=== PATIENT | female | born 1985 | race Caucasian/White ===

== ENCOUNTER 2019-02-28 01:40 | Emergency (ER) | payer BC, SELFPAY ==
[2019-02-28 01:40] VITALS: BP 157/103; PULSE 70; RESP 16; TEMP 37.1; O2SAT 99; BMI 36.4
--- NOTE | 2019-02-28 01:47 | XR_ITS ---
WS: [id number] SOFT TISSUE NECK 2 VIEW(S) TECHNIQUE: AP and lateral views of the neck in soft tissue technique are performed. HISTORY: possible Fb in throat COMPARISON: None available. No significant steepling or narrowing of the airway. Hypopharynx is not distended. No retropharyngeal soft tissue mass or air. Epiglottis is normal. XR/XR soft tissue neck [id number] IMPRESSION: Normal soft tissue neck.
--- NOTE | 2019-02-28 01:47 | XR_ITS ---
WS: [id number] CHEST 2 VIEWS HISTORY: possible FB in throat COMPARISON: 03/31/2018 Lungs: Clear with no abnormality. No pleural effusion or pneumothorax. Cardiac size: Normal. Mediastinum/Aorta: Normal mediastinum. Bones: Normal. XR/XR chest 2V* [id number] IMPRESSION: Normal chest.
--- NOTE | 2019-02-28 01:48 | ED_ITS ---
HPI - General Adult General: Chief complaint: General Medical Stated complaint: something stuck in throat Time Seen by Provider: 02/28/19 01:43 History of Present Illness: HPI narrative: Patient states she was eating spaghetti night and after eating spaghetti she noticed feeling her throat like a fullness and thought that maybe she had got some stuck in her throat. She ate some bread and drink some water to try to wash it down those things went down fine but she still feels like some stuck in her throat. She said it like a pill being stuck in there but 5 times is worse and when she pushes on it she feels like she can feel something down the lower part of her throat. Onset (ago): hour(s) Radiation: non-radiation Severity: moderate Quality: dull Associated symptoms: Reports vomiting; Deny chest pain, dyspnea, headache(s) or rash Review of Systems Narrative: Feels like throat foreign body stuck in throat Const: Denies: fever, chills or body aches Eyes: Denies: change in vision or blurry vision ENMT: Denies: throat pain or nasal congestion Card: Denies: chest pain or shortness of breath on exertion Resp: Denies: shortness of breath, productive cough or non-productive cough GI: Reports: vomiting Musc: Denies: extremity pain Skin/Breast: Denies: rash Neuro: Denies: headache Psych: Denies: anxiety or depression Chuy/Lymph: Denies: easy bruising PFSH ED PFSH: Statuses (acute, chronic, etc) shown below reflect problem list status as previously entered and may not be historically accurate Social History Smoking and tobacco status: never smoked Physical Exam Const: COMMON NORMALS: oriented x3 GENERAL APPEARANCE: cooperative, comfortable and well kempt HENMT: THROAT: posterior oropharynx normal; tonsils not abnormal Eye: CONJUNCTIVA: Yes other (Right conjunctive is injected) Neck/C-Spine: COMMON NORMALS: full ROM, no lymphadenopathy, no JVD and thyroid normal THYROID: thyroid normal Cardio: COMMON NORMALS: no JVD and regular rate RATE: regular rate Neuro: COMMON NORMALS: oriented x3 Psych: COMMON NORMALS: mental status grossly normal APPEARANCE: Yes well kempt Course Vital Signs: Vital signs: Vital Signs Temperature 98.8 F 02/28/19 01:40 Pulse Rate 75 02/28/19 01:51 Respiratory Rate 18 02/28/19 01:51 Blood Pressure 157/103 02/28/19 01:51 Pulse Oximetry 99 02/28/19 01:51 MDM - General Adult MDM Narrative: Medical decision making narrative: Give patient GI cocktail she said helped for about a couple minutes but it feels like some still stuck in her throat consulted Dr. Resendez he said give her a Coke and see if that helps. Diana ent was able to tolerate coke without problems will send patient home and she will follow-up Dr. Dumas if no symptom improvement Discharge Plan Discharge Patient Disposition: Home, Self-Care Clinical Impression: Esophagitis Condition: Stable Prescriptions: New prednisone 5 mg tablet 5 mg PO DAILY Qty: 5 RF: 0 No Action minoxidil 10 mg tablet 20 PO BID RF: 0 metoprolol succinate 200 mg tablet extended release 24 hr 100 PO BID RF: 0 Referrals: Angel Dumas MD [Family Provider] - Discharge Diet: Clear Liquid Discharge Activity: Resume usual activity Patient Instructions: Corrosive Esophagitis (ED) Activity Restrictions/Additional Instructions: Patient is to follow-up Dr. Dumas if no significant improvement. Can use Maalox as needed to help soothe throat. Take medication as directed can return here if problem worsens. Coding Level of Care Code ED [employer] for Bear Fwalvarado Exam Problem Focused
[2019-02-28 01:51] VITALS: BP 157/103; PULSE 75; RESP 18; O2SAT 99
[2019-02-28] MEDS: predniSONE 20 mg Tablet PO (02:58)
[2019-02-28 03:02] VITALS: BP 170/108; PULSE 63; RESP 18; TEMP 36.8; O2SAT 97
== END 2019-02-28 03:06 | disposition home or self-care (01) ==
PROVIDERS: Emergency Provider Nurse Practitioner Family; Family Provider Family Medicine
DX: K20.9 Esophagitis, unspecified (principal)
CPT/HCPCS: 70360; 71046; 99281; J7512